=== PATIENT | female | born 1945 | race Caucasian/White ===

== ENCOUNTER → 2016-06-06 | Day surgery (SDC) | payer BC, OTHER ==
[~2016-06-06] MED LIST: ALPRAZOLAM PO; ASACOL400 MG PO; ASPIRIN EC81 M1 PO; ASPIRIN PO; ATENOLOL PO; ATENOLOL25 MG PO; AZULFIDINE PO; BENADRYL ALLERG1 TAB PO; BENADRYL IV; BENADRYL PO; CARAFATE1 G PO; CELEXA PO; COUMADIN2.5 MG PO; COUMADIN5 MG PO; FAMOTIDINE PO; LIPITOR PO; LIPITOR40 MG PO; LISINOPRIL PO; LOVENOX80 MG/0.8 INJ; MAGNESIUM250 M1 PO; MAXZIDE 75/50 T1 TAB PO; MAXZIDE-25 MG1 UDTAB PO; MELATONIN3 MG; MULTI-DAY VITAM1 TAB PO; ONE DAILY1 TA1 PO; PAIN RELIEF650 MG PO; PLAVIX PO; PREDNISONE PO; PRILOSEC OTC DAILY; PRILOSEC PO; PROTONIX PO; RELIVE; ROSUVASTATIN CAL5 MG PO; THERAPEUTIC VI1 EACH PO; TOPROL XL PO; VICODIN 5/500 T1 TAB PO; VIT B-12 SL; VITAL-D RX TABL1 TAB PO; VITAMIN D400 UNI2 PO; ZOCOR PO
--- NOTE | ~2016-06-06 | OR ---
Unit #: [id number] #: [id number] Patient: AYANA DAUGHERTY [id number] [address] [place], [place] [address] [id number] O MR#: [id number] NAME: AYANA DAUGHERTY ROOM: Date of Procedure: 06/06/2016 Admission Date: 06/06/2016 Surgeon: Matt Louis Jr., M.D. : 1945 Attending Physician: Matt Louis Jr., M.D. Primary Care Physician: Enrique Del Valle M.D. OPERATIVE REPORT INDICATIONS FOR PROCEDURE The patient is a 71-year-old white female, recently presented to the office complaining of some intermittent rectal bleeding. She has had a known past history of colon polyps and her last colonoscopy over 2-1/2 years ago. It was felt she needed a repeat colonoscopy to re-evaluate the area for polyps as well as to determine the source of her bleeding. The patient understands the procedure including the risks, including that of perforation and bleeding, and consents. PREOPERATIVE DIAGNOSES Possible colitis, possible recurrent polyps. POSTOPERATIVE DIAGNOSES Diverticulosis of left colon with mild nonspecific colitis as well as proctitis and no evidence of any polyps. ANESTHESIA MAC anesthesia. PROCEDURE PERFORMED Flexible colonoscopy to the cecum with random biopsies including the cecum, transverse colon, and left colon, also the rectum. DESCRIPTION OF PROCEDURE The patient was positioned in Munroe position with left side down. After being given MAC anesthesia, digital rectal examination was performed, which revealed no palpable mass or tenderness. No blood or stool within the rectal ampulla. The Olympus colonoscope was advanced through the anal canal up the rectum and retroflexed down to the area of the anorectal region. There was no evidence of any fissures and no significant internal hemorrhoids. There was some mild hemorrhagic proctitis present. Several biopsies were taken from this area without significant bleeding. The scope was then advanced up after being straightened into the rectosigmoid and sigmoid areas. In the sigmoid, there were few diverticula without evidence of diverticulitis. Again, there were some areas of nonspecific changes possibly on the basis of some chronic colitis. The scope was then advanced around the descending colon, around the splenic flexure and the transverse colon, around hepatic flexure and ascending colon down in the area of the cecum. There was some erythema and a small amount of hemorrhagic mucosa near the ileocecal valve area. Biopsies were taken from this without bleeding. Multiple attempts in advancing the scope up the distal ileum were unsuccessful. The scope was slowly removed. There Unit #: [id number] #: [id number] Patient: AYANA DAUGHERTY were no tumors, no polyps, no cancer, no AVMs. There were some questionable diffuse nonspecific colitis. No evidence of any diverticulitis. There were several diverticula in the left colon as noted above. The scope was removed. The patient tolerated the procedure well and discharged in satisfactory condition. Dictated by... Matt Louis Jr., MEfrain. VALDEMAR/hai TD: 06/06/2016 08:07 JOB #: [id number] OPERATIVE REPORT Page 1 of 1 X Matt Louis MD X PROCEDURE OPERATIVE NOTE
== END | disposition home or self-care (01) ==
LOC: COPS 05:44
DX: K52.9 Noninfective gastroenteritis and colitis, unspecified (principal); K57.30 Diverticulosis of large intestine without perforation or abscess without bleeding; K62.89 Other specified diseases of anus and rectum; K62.5 Hemorrhage of anus and rectum; K63.5 Polyp of colon; Z86.010 Personal history of colon polyps; K21.9 Gastro-esophageal reflux disease without esophagitis; I25.10 Atherosclerotic heart disease of native coronary artery without angina pectoris; I10 Essential (primary) hypertension; E78.5 Hyperlipidemia, unspecified; I73.9 Peripheral vascular disease, unspecified; Z95.5 Presence of coronary angioplasty implant and graft; I25.2 Old myocardial infarction; Z79.01 Long term (current) use of anticoagulants; Z88.0 Allergy status to penicillin; Z88.8 Allergy status to other drugs, medicaments and biological substances; Z86.73 Personal history of transient ischemic attack (TIA), and cerebral infarction without residual deficits
CPT/HCPCS: 88305

== ENCOUNTER 2016-08-27 05:56 | Emergency (ER) | payer BC, OTHER ==
--- NOTE | ~2016-08-27 | EKG ---
PATIENT: AYANA DAUGHERTY UNIT #: [id number] Ventricular Rate: 65 BPM Atrial Rate: 65 BPM P-R Interval: 150 ms QRS Duration: 88 ms Q-T Interval: 440 ms QTC Calculation(Bezet): 457 ms P Monument: 20 degrees Calculated R Monument: -4 degrees Calculated T Monument: 11 degrees Diagnosis Line: Normal sinus rhythm Diagnosis Line: Low voltage QRS Diagnosis Line: Nonspecific ST and T wave abnormality Diagnosis Line: Abnormal ECG Diagnosis Line: Diagnosis Line: Confirmed by KAREN LEAL MD ([id number]) on 08/28/2016 Diagnosis Line: 4:37:43 PM INTERPRETING MD: MEL GRACE
--- NOTE | ~2016-08-27 | CT71 ---
[facility] A Service of [facility] RADIOLOGY TEXT RESULTS PATIENT: AYANA DAUGHERTY LOCATION: [facility] : [birth year] UNIT #: [id number] AGE: [address]: Richardson Mccormick MD SEX: F ORDER DR: [id number] [facility] [address] [place], [place] [address] [id number] E MR#: [id number] #: [id number] NAME: AYANA DAUGHERTY : 1945 SEX: F STUDY DATE/TIME: 08/27/2016 8:29 UNIT: [facility] ROOM: STUDY DESCRIPTION: CT Head Wo Contrast Attending Physician: Richardson Mccormick M.D. Ordering Physician: Richardson Mccormick M.D. Primary Care Physician: Enrique Del Valle M.D. MEDICAL IMAGING REPORT This report is preliminary unless electronic signature is present EXAM CT of the head without contrast INDICATION Generalized headache since 3 o'clock this morning. TECHNIQUE Axial CT images were obtained from the vertex of the skull through the skull base. No intravenous contrast material was administered. This CT examination was performed with one or more of the following radiation dose reduction techniques: automatic exposure control, adjustment of mA and/or kV according to patient size, and iterative reconstruction. FINDINGS No acute intracranial hemorrhage is identified. There is diffuse cerebral atrophy with compensatory ventricular dilatation which is in keeping with the age of 71. 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 There is atherosclerotic involvement of the cavernous carotid arteries. There is no midline shift or mass effect. I do not see any definite focal areas of decreased attenuation. Visualized paranasal sinuses and mastoid air cells appear clear. No aggressive osseous abnormalities are seen and there are no focal soft tissue abnormalities. IMPRESSION 1. No acute intracranial process identified. Specifically there is no evidence of acute hemorrhage, mass lesion or acute infarct. 2. Age-appropriate cerebral atrophy, as well as some microangiopathic disease. Dictated by... Natalee Ayala M.D. [facility] A Service of [facility] RADIOLOGY TEXT RESULTS PATIENT: AYANA DAUGHERTY LOCATION: [facility] : [birth year] UNIT #: [id number] AGE: [address]: Richardson Mccormick MD SEX: F ORDER DR: THIS IS AN ELECTRONICALLY VERIFIED REPORT Natalee Ayala M.D. at 08/28/2016 10:49 AM СВЕТЛАНА/jose TD: 08/27/2016 13:52 JOB #: [id number] MEDICAL IMAGING REPORT Page 1 of 1 COPY
[2016-08-27 06:44] LABS: BASOPHIL% 0.3 % (0-2.5); EOSINOPHIL# 0.2 X10e3 (0-0.7); EOSINOPHIL% 2.7 % (0.0-7.0); HEMOGLOBIN 13.5 gm/dL (12.0-16.0); LYMPHOCYTE# 2.9 X10e3 (1.0-3.5); LYMPHOCYTE% 38.5 % (17.0-45.0); MEAN CELL VOLUME 90.6 FL (83-96); MEAN CORPUSCULAR HEMOGLOBIN 30.6 PG (28-34); MEAN CORPUSCULAR HGB CONC 33.7 g/dL (30-36); MEAN PLATELET VOLUME 9.3 FL (6.5-11.5); MONOCYTE# 0.8 X10e3 (0-1.0); MONOCYTE% 11.3 % (3.0-12.0); NEUTROPHIL# 3.5 X10e3 (1.5-7.1); NEUTROPHIL% 47.2 % (40-75); PLATELET COUNT 175 X10e3 (140-420); RED BLOOD COUNT 4.41 X10e (3.90-5.30); RED CELL DISTRIBUTION WIDTH 12.1 % (11.0-15.5); WHITE BLOOD COUNT 7.4 X10e3 (4.0-10.5)
[2016-08-27 06:45] LABS: DIFF IND NO
[2016-08-27 07:09] LABS: ALBUMIN SERUM 4.3 g/dL (3.5-5.0); BILIRUBIN, DIRECT 0.1 mg/dL (0.0-0.2); BILIRUBIN,INDIRECT 0.8 mg/dL (0.0-0.9); BILIRUBIN,TOTAL 0.9 mg/dL (0.2-2.0); BUN/CREATININE RATIO 16.25; CALCIUM SERUM 8.7 mg/dL (8.4-10.2); CREATININE SERUM 0.8 mg/dL (0.6-1.4); GLOM FILT RATE Estimated 73.2 mL/min (>60); POTASSIUM 3.7 mmol/L (3.5-5.1)
[2016-08-27 07:21] LABS: POC - TROPONIN <0.05 ng/mL (<=0.05)
== END 2016-08-27 09:23 | disposition home or self-care (01) ==
LOC: CED 05:56
PROVIDERS: Emergency Medicine
DX: I10 Essential (primary) hypertension (principal); Z88.0 Allergy status to penicillin; Z88.2 Allergy status to sulfonamides; Z91.041 Radiographic dye allergy status; Z88.8 Allergy status to other drugs, medicaments and biological substances; Z79.899 Other long term (current) drug therapy
CPT/HCPCS: 36415; 70450; 80048; 80076; 82553; 84484; 85025; 93005; 96374; 99284